=== PATIENT | male | born 1985 | race Two or more races ===

== ENCOUNTER 2022-09-10 21:33 | Emergency (ER) | payer OTHER ==
[~2022-09-10] VITALS: Ht 175.3 cm; Wt 77.1 kg
[2022-09-10] MEDS ORDERED: TRAZODONE HCL50 MG PO (22:13)
[2022-09-10] MEDS ORDERED: PROTONIX40 M1 PO (22:13)
[2022-09-10] MEDS ORDERED: FLUOXETINE HCL60 MG PO (22:14)
== END 2022-09-10 22:47 | disposition home or self-care (01) ==
LOC: ER 21:33
DX: M54.9 Dorsalgia, unspecified (principal); J06.9 Acute upper respiratory infection, unspecified; Z91.011 Allergy to milk products